=== PATIENT | male | born 1950 | race Caucasian/White ===

== ENCOUNTER → 2017-11-23 | Day surgery (SDC) | payer OTHER ==
[2017-11-17 10:13] LABS: BASOPHILS # (AUTO) 0.1 (0.0-0.1); BASOPHILS % 0.7 % (0.0-1.0); EOSINOPHILS # (AUTO) 0.3 (0.0-0.4); EOSINOPHILS % 3.9 % (0.0-6.0); HEMATOCRIT 50.6 % (38.2-49.6); HEMOGLOBIN 15.7 g/dL (14.0-18.0); LYMPHOCYTES # (AUTO) 1.3 (1.0-3.2); LYMPHOCYTES % 16.9 % (18.0-39.1); MEAN CORPUSCULAR HEMOGLOBIN 25.1 pg (28-32); MONOCYTES # (AUTO) 0.8 (0.2-0.8); MONOCYTES % 10.1 % (4.4-11.3); NEUTROPHILS # (AUTO) 5.1 (2.1-6.9); NEUTROPHILS % 67.1 % (38.7-80.0); PLATELET COUNT 209 x10e3/uL (140-360); RED BLOOD COUNT 6.25 x10e6/uL (4.3-5.7); RED CELL DISTRIBUTION WIDTH 19.2 % (11.7-14.4)
[~2017-11-23] MED LIST: ALLOPURINOL100 MG PO; BYSTOLIC10 MG PO; CHROMIUM PIC1000 MCG PO; CO Q10200 MG PO; CRESTOR5 MG PO; DIOVAN80 MG PO; FARXIGA PO; FENTANYL CITRATE/PF 100MCG/2 ML INJ ONE; HYDROCHLOROTHIA25 MG PO; HYOSCYAMINE SULFATE 0.5 MG/ML AMP ONE; JENTADUETO 2.51 EAC2 PO; LIDOCAINE HCL 2% LOCAL INJ 5 ML SDV VIAL INJ ONE; METOCLOPRAMIDE PO; METOCLOPRAMIDE10 MG PO; MIDAZOLAM HCL 2 MG/2 ML VIAL ONE; PANTOPRAZOLE SO40 MG PO; PROPOFOL IV EMULSION 10 MG/ML 50 ML VIAL ONE; ROPINIROLE HC0.25 MG PO; SYNTHROID50 MCG PO; TESTOSTERO100 MG/1 M IM; TESTOSTERONE CYP INJ; VIAGRA100 MG PO; VITAMIN B 12 PO; VITAMIN D 3 PO; [UNRECOGNIZED DRUG - MIXTURE] PO; invokana PO
--- NOTE | 2017-11-23 10:23 | Operative Report ---
DATE OF PROCEDURE: November 23, 2017 PROCEDURE PERFORMED: Colonoscopy and polypectomy. REFERRING PHYSICIAN: Dr. Errol Suh INDICATIONS FOR COLONOSCOPY: Colorectal cancer screening. MEDICATION: Patient was done under MAC. Please see anesthesiologist note. PROCEDURE IN DETAIL: With the patient in left lateral decubitus position, flexible fiberoptic Olympus colonoscope was inserted into the rectum with ease and advanced all the way to the cecum. The scope was then withdrawn slowly. Mucosa overlying the cecum, ascending colon appeared to be within normal limits. Two polyps were snared from the transverse colon. The descending colon other than for some diverticulosis to the distal aspect appeared to be within normal limits. Sigmoid colon diverticulosis was also noted and 1 polyp was hot biopsied from the sigmoid colon. The rectum appeared to be within normal limits. The scope was then retroflexed into the distal rectum, and small internal hemorrhoids were noted, none of which was actively bleeding. The scope was then straightened out. It was subsequently withdrawn. Patient tolerated the procedure well. IMPRESSION: 1. Transverse colon polyps x2, snared. 2. Diverticulosis. 3. Sigmoid colon polyp, hot biopsied. 4. Internal hemorrhoids, none actively bleeding. PLAN: Follow up histology. Initiate high-fiber low-fat diet. Initiate high-fiber supplement. Patient might benefit from a followup colonoscopy in 3 years. Job#: [id number] cc:ERROL SUH MD
== END | disposition home or self-care (01) ==
LOC: OR 07:30
PROVIDERS: ATTEND Internal Medicine Gastroenterology
DX: Z12.11 Encounter for screening for malignant neoplasm of colon (principal); D12.3 Benign neoplasm of transverse colon; D12.5 Benign neoplasm of sigmoid colon; K57.30 Diverticulosis of large intestine without perforation or abscess without bleeding; K64.8 Other hemorrhoids; K22.70 Barrett's esophagus without dysplasia; K21.9 Gastro-esophageal reflux disease without esophagitis; E11.9 Type 2 diabetes mellitus without complications; I10 Essential (primary) hypertension; G47.33 Obstructive sleep apnea (adult) (pediatric); E78.5 Hyperlipidemia, unspecified; E03.9 Hypothyroidism, unspecified; N20.0 Calculus of kidney; Z88.3 Allergy status to other anti-infective agents; Z01.810 Encounter for preprocedural cardiovascular examination; Z01.812 Encounter for preprocedural laboratory examination; Z79.84 Long term (current) use of oral hypoglycemic drugs
CPT/HCPCS: 36415 ×2; 45384; 45385; 82948; 85025; 93005; J1980; J2001; J2250

== ENCOUNTER 2018-09-19 09:52 | Emergency (ER) | payer MEDICARE, OTHER ==
[~2018-09-19] VITALS: Ht 177.8 cm; Wt 84.8 kg
[~2018-09-19 09:52] MED LIST changes: -FENTANYL CITRATE/PF 100MCG/2 ML INJ ONE; -HYOSCYAMINE SULFATE 0.5 MG/ML AMP ONE; -LIDOCAINE HCL 2% LOCAL INJ 5 ML SDV VIAL INJ ONE; -MIDAZOLAM HCL 2 MG/2 ML VIAL ONE; -PROPOFOL IV EMULSION 10 MG/ML 50 ML VIAL ONE
--- OUTSIDE RECORDS SUMMARY | 2018-09-19 09:55 | XMS REPORT ---
Author Author [facility] Address Unknown Phone Unavailable Care Team Providers Care Signals Collector/Analyst Name Role Phone HIDARIN ARANDA Unavailable Unavailable Problems This patient has no known problems. Allergies, Adverse Reactions, Alerts This patient has no known allergies or adverse reactions. Medications This patient has no known medications. Results Test Description Test Time Test Comments Text Results Atomic Results Result Comments TISSUE EXAM 2016-08-29 16:02:00 LAB AP CPT CODE (BEAKER) (test euzi=0119) [id number] POTASSIUM-STAT [id number] 08:42:00* Test Item Value Reference Range Comments POTASSIUM (BEAKER) (test aadu=209) 4.3 meq/L 3.6-5.5 POCT-GLUCOSE [id number] 08:25:00* Test Item Value Reference Range Comments POC-GLUCOSE METER (BEAKER) (test iaca=5316) 122 mg/dL 70-110 TESTED AT [address] [address]
--- OUTSIDE RECORDS SUMMARY | 2018-09-19 09:55 | XMS REPORT | Summary of Care ---
Author Author YONI SALINAS M.D. Organization Unknown Address Unknown Phone Unavailable Care Team Providers Care Vehicle Refinisher Name Role Phone Kiara Cunningham LVN Unavailable Unavailable YONI SALINAS M.D. Unavailable Unavailable Yoni Salinas MD Unavailable Unavailable ZACH KOVACS MA, ALETA LEVY Unavailable Unavailable Unavailable Unavailable Functional Status Name Dates Details Functional status health issues are not documented Status: Name Dates Details Cognitive status health issues are not documented Status: Problems Name Dates Details Type 2 diabetes mellitus (250.00, E11.9) Status: Active Acute bacterial bronchitis (466.0, J20.8) Status: Active Sore throat (462, J02.9) Status: Active Heart murmur (785.2, R01.1) Status: Active Preop examination (V72.84, Z01.818) Status: Active Medications Name Dates Details Janumet 50-1000 MG Oral Tablet Active Jardiance 25 MG Oral Tablet * Refills: 0 Active hydroCHLOROthiazide 12.5 MG Oral Capsule * Refills: 0 Active Cozaar 50 MG Oral Tablet * Refills: 0 Active Crestor 5 MG Oral Tablet * Refills: 0 Active Allopurinol 100 MG Oral Tablet * Refills: 0 Active Levothyroxine Sodium 50 MCG Oral Tablet * Refills: 0 Active Viagra 100 MG Oral Tablet * Refills: 0 Active Pantoprazole Sodium 40 MG Oral Tablet Delayed Release * Refills: 0 Active Testosterone Cypionate 200 MG/ML Intramuscular Solution * Refills: 0 Active Fluticasone Propionate 50 MCG/ACT Nasal Suspension * Refills: 0 Active FreeStyle Lite Test In Vitro Strip TEST TWICE DAILY. * Quantity: 2 Refills: 1 YONI SALINAS M.D. * Start : 13-Apr-2018 Active 100 Strip Box FreeStyle Lancets USE 1 LANCET 2 TIMES DAILY.DX CODE: E11.9 * Quantity: 2 Refills: 1 YONI SALINAS M.D. 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) Status: Resolved History of erectile dysfunction (V13.89, Z87.438) Status: Resolved History of hyperlipidemia (V12.29, Z86.39) Status: Resolved History of hypertension (V12.59, Z86.79) Status: Resolved History of hypothyroidism (V12.29, Z86.39) Status: Resolved History of reactive airway disease (V12.69, Z87.09) Status: Resolved History of sleep apnea (V13.89, Z86.69) Status: Resolved History of type 2 diabetes mellitus (V12.29, Z86.39) Status: Resolved Procedures Procedure Dates Details Dobutamine Stress Echo Date: 30-Aug-2018 [[facility]] CMP W/EGFR Date: 12-Aug-2018 [[facility]] HEMOGLOBIN A1c Date: 12-Aug-2018 [[facility]] MICROALBUMIN, RANDOM URINE (W/CREATININE) Date: 12-Aug-2018 [] LIPID PANEL WITH REFLEX TO DIRECT LDL Date: 12-Aug-2018 [[facility]] CMP W/EGFR Date: 30-Aug-2018 [[facility]] HEMOGLOBIN A1c Date: 30-Aug-2018 [[facility]] CBC (INCLUDES DIFF/PLT) Date: 30-Aug-2018 Immunization Name Dates Details Varicella Disease on: Apr-1956 Social History Name Dates Details - Status: Name Dates Details Never smoker Vital Signs Date Test Result Details [id number] BP Systolic 138 mm[Hg] Status: Comments: Location: LUE; Position: Sitting BP Diastolic 86 mm[Hg] Status: Comments: Location: LUE; Position: Sitting Height 70 in Status: Weight 184 lb Status: Body Mass Index Calculated 26.4 kg/m2 Status: Body Surface Area Calculated 2.01 m2 Status: Temperature 98.8 f Status: Comments: Method: Temporal Respiration Rate 16 /min Status: Heart Rate 88 /min Status: Results Date Description Value Details Results not documented Plan of Care Name Dates Details Planned Observations Planned Goals not documented Planned Encounters Appointment; YONI SALINAS M.D. On: 04-Oct-2018 8:15 Instructions Name Dates Details Instructions not documented Encounters Appointment; YONI SALINAS M.D. Encounter Diagnosis: Problem not documented On: 12-Apr-2018 14:00 Appointment; CHILANGO GUERRERO P.A. Encounter Diagnosis: Problem not documented On: 15-Apr-2018 11:15 Appointment; YONI SALINAS M.D. Encounter Diagnosis: Problem not documented On: 30-Aug-2018 14:00
--- OUTSIDE RECORDS SUMMARY | 2018-09-19 09:55 | XMS REPORT | Clinical Summary ---
Author Author [email or web address] [facility] Address Unknown Phone Unavailable Care Team Providers Care Linseed Cake Trimmer Name Role Phone J Carlos Suh MD PCP Allergies Comments Active Allergy Reactions Severity Noted Date Stomach ache Erythromycin Other (See 06/04/2015 Comments) Medications End Date Status Medication Sig Dispensed Refills Start Date Active allopurinol (ZYLOPRIM) Take 100 mg 0 100 MG tablet by mouth daily. Active levothyroxine (SYNTHROID, Take 50 mcg 0 LEVOTHROID) 50 MCG tablet by mouth Every morning on an empty stomach. Active rosuvastatin (CRESTOR) 5 Take 5 mg by 0 MG tablet mouth daily. Active pantoprazole (PROTONIX) Take 40 mg by 0 40 MG tablet mouth 2 (two) times daily. Active valsartan (DIOVAN) 80 MG Take 80 mg by 0 tablet mouth daily. Active TESTOSTERONE IM Inject 0 intramuscular ly once every 3 weeks . Active sildenafil (VIAGRA) 100 Take 100 mg 0 MG tablet by mouth daily as needed for Erectile Dysfunction. Active SITagliptin-metFORMIN Take 1 tablet 0 (JANUMET) 50-1,000 mg per by mouth 2 tablet (two) times daily with breakfast and dinner. Active atenolol (TENORMIN) 50 MG Take 50 mg by 0 tablet mouth daily. Active hydroCHLOROthiazide Take 12.5 mg 0 (HYDRODIURIL) 12.5 MG by mouth tablet daily. Active canagliflozin (INVOKANA) Take 300 mg 0 300 mg tablet by mouth daily. Active coenzyme Q10 (CO Q-10) Take 400 mg 0 100 mg capsule by mouth daily. Active cholecalciferol, vitamin Take 1,000 0 D3, 1,000 unit capsule Units by mouth daily. Active ascorbic acid, vitamin C, Take 1,000 mg 0 (VITAMIN C) 1000 MG by mouth tablet daily. Active b complex vitamins Take 1 0 capsule capsule by mouth daily. Active Problems Not on file Social History Date Tobacco Use Types Packs/Day Years Used Never Smoker Smokeless Tobacco: Never Used Alcohol Use Drinks/Week oz/Week Comments Yes occasional Sex Assigned at Date Recorded Not on file Industry Job Start Date Occupation Not on file Not on file Not on file Travel End Travel History Travel Start No recent travel history available. Last Filed Vital Signs Not on file Plan of Treatment Not on file Results Not on fileafter 09/18/2017 Insurance Payer Benefit Subscriber ID Type Phone Address Plan / Group [employer] - [employer] C[employer] xxxxxxxxxxx HMO/POS HMO/POS/OP EN ACCESS
[2018-09-19] MEDS ORDERED: LIDOCAINE 2%/ EPINEPHRINE 20ML MDV INJ ONE (10:00)
[2018-09-19] MEDS ORDERED: TETANUS/DIPHTHERIA TOX ADULT 0.5 ML SYR IM ONE (10:00)
[2018-09-19 10:39] VITALS: BP 130/88
--- NOTE | 2018-09-19 10:39 | Diagnostic Imaging Report ---
EXAMINATION: Head and cervical spine CT without contrast. HISTORY: Status post fall, hitting the back of the head, laceration, head and neck pain COMPARISON: None. TECHNIQUE: Multidetector axial images were obtained without contrast from the foramen magnum to the vertex and through the cervical spine. The images were reconstructed using brain and bone algorithms. Thin section brain images were reformatted into coronal and sagittal planes. Dose modulation, iterative reconstruction, and/or weight based adjustment of the mA/kV was utilized to reduce the radiation dose to as low as reasonably achievable. HEAD CT FINDINGS: Skull/scalp: No lytic or blastic lesions. Occipitoparietal scalp swelling/laceration without underlying fractures. Parenchyma: Normal. No mass, hemorrhage or CT evidence of acute vascular insult. Brain volume: Normal for age. Ventricles: No hydrocephalus or displacement. Arteries: No density suggestive of thrombus. Dural sinuses: No abnormal density. Extra-axial spaces: No abnormal density. Foramen magnum: No mass, Chiari malformation, or basilar invagination. Sella: No obvious mass. Paranasal/mastoid sinuses: Imaged portions unremarkable. CERVICAL SPINE CT FINDINGS: Alignment:Normal alignment and lordosis. Soft tissues: Normal. Vertebrae: Normal height and density. No acute fracture, infection or neoplasm. Degenerative changes: C1-C2: Normal C2-C3: Bilateral facet arthrosis without significant stenoses. C3-C4: Uncovertebral hypertrophy worse on the left. No significant canal or foraminal stenoses C4-C5: Prominent facet arthrosis may be on the right. Moderately severe right foraminal stenoses C5-C6: Uncovertebral and facet arthrosis. Mild bilateral foraminal narrowing. C6-C7: Bilateral facet arthrosis without stenoses. C7-T1: Normal IMPRESSION: Head CT: 1. No acute postraumatic intracranial hemorrhage. 2. Occipitoparietal scalp swelling/laceration without underlying fractures. Cervical spine CT: 1. No acute fractures or dislocations. 2. Chronic degenerative changes as described. Note: Acute post traumatic spinal cord, vascular or ligamentous injury cannot adequately be assessed with CT. Signed by: Dr. Rocío Vega M.D. on 09/19/2018 10:35 AM
== END 2018-09-19 11:18 | disposition home or self-care (01) ==
LOC: ER 09:52
DX: S06.890A Other specified intracranial injury without loss of consciousness, initial encounter (principal); S01.01XA Laceration without foreign body of scalp, initial encounter; W19.XXXA Unspecified fall, initial encounter; Y93.9 Activity, unspecified; I10 Essential (primary) hypertension; E11.9 Type 2 diabetes mellitus without complications; E78.5 Hyperlipidemia, unspecified
CPT/HCPCS: 12002; 70450; 72125; 90471; 90714; 99283; J2001